=== PATIENT | female | born 1975 | race Caucasian/White ===

== ENCOUNTER → 2017-10-14 | Outpatient (CLI) | payer OTHER | END | disposition home or self-care (01) | LOC: PPH VACUNA 10:49 | DX: Z23 Encounter for immunization (principal) ==

== ENCOUNTER → 2019-05-02 | Outpatient (CLI) | payer OTHER | END | disposition home or self-care (01) | LOC: RAD 13:59 | DX: M25.512 Pain in left shoulder (principal) ==

== ENCOUNTER → 2019-05-08 | Outpatient (CLI) | payer OTHER | END | disposition home or self-care (01) | LOC: TOM 12:12 | DX: S42.192A Fracture of other part of scapula, left shoulder, initial encounter for closed fracture (principal) ==

== ENCOUNTER 2024-04-06 10:31 | Outpatient (CLI) | payer OTHER | END 2024-04-06 10:48 | disposition home or self-care (01) | LOC: RAD 10:31 | DX: M54.9 Dorsalgia, unspecified (principal); M54.50 Low back pain, unspecified ==